=== PATIENT | male | born 1970 | race Caucasian/White ===

== ENCOUNTER 2019-11-21 15:06 | Emergency (ER) | payer SELFPAY ==
[~2019-11-21] VITALS: Ht 180.3 cm; Wt 74.8 kg
[2019-11-21 15:15] VITALS: BP 132/87
--- NOTE | 2019-11-21 15:15 | NUR ---
ED Nurse Note: Pt walked in to ED from home c/o insect bite on right thigh x 2 days. Reports hot to touch and redness. VSS.
[2019-11-21] MEDS ORDERED: VIBRAMYCIN100 MG ORAL (15:28)
[2019-11-21] MEDS ORDERED: AUGMENTIN 875-1 EAC1 ORAL (15:28)
[2019-11-21] MEDS ORDERED: Augmentin 875mg Tab ORAL ONE (15:30)
[2019-11-21] MEDS ORDERED: Doxycycline Monohydrate 100mg ORAL ONE (15:30)
--- NOTE | 2019-11-21 15:32 | Emergency Room Report ---
History of Present Illness General Chief Complaint: Animal Bite Source: Patient Present Illness HPI Patient is a 49-year-old male who presents after increased right lower extremity redness and discomfort. Patient presented with increased pain. He reports having initial redness to the area which had gradually worsened. Denies any prior history of any compromise. Had not been having any fever or dizziness. Reports having onset during gardening. He thinks he may have been bitten by an insect. Denies any initial pain.Denies prior history of HIV or other immunocompromise. Allergies: Coded Allergies: No Known Allergies (Unverified , 11/21/19) COVID-19 Screening Contact w/high risk pt: No Recent Travel to affected area: No Experienced COVID-19 symptoms?: No COVID-19 Testing performed [employer] FORMER: No Patient History Past Medical History: see triage record Reviewed Nursing Documentation: PMH: Agreed; PSxH: Agreed Nursing Documentation-PMH Past Medical History: No History, Except For Hx Hypertension: No - CELLULITIS Review of Systems All Other Systems: negative except mentioned in HPI Physical Exam Vital Signs Date Time Temp Pulse Resp B/P (MAP) Pulse Ox O2 Delivery O2 Flow Rate FiO2 11/21/19 15:10 98.4 120 16 132/87 (102) 99 Room Air General Appearance: well appearing, no apparent distress, GCS 15 Head: normocephalic, atraumatic ENT: hearing grossly normal, normal voice Neck: full range of motion, supple Respiratory: no respiratory distress, speaking full sentences Cardiovascular #1: normal inspection, no edema Gastrointestinal: normal inspection, non tender, soft Musculoskeletal: no calf tenderness Neurologic: alert, motor strength/tone normal, backup administrative coordinator III-XII nml as tested, oriented x3, normal gait Psychiatric: normal inspection, mood/affect normal Skin: other - Right lower extremity patchy erythema with central papule consistent with a insect bite. No purulent lesions or streaking Medical Decision Making Diagnostic Impression: Primary Impression: Infected insect bite ER Course Patient presented for right lower extremity discomfort. Differential diagnosis include was not limited to allergic reaction, insect bite, cellulitis, abscess among others. Patient has a benign exam and does not appear to require any imaging or laboratory testing at this time. Patient appears to have a insect bite which appears to be somewhat infected. Does not appear to be any evidence of central necrosis at this time. At this does appear to be possibly spider bite. Patient does not have any abdominal discomfort and does not appear to be toxic at this time. He was given prescription for oral antibiotics and advised to have the wound rechecked in 1 to 2 days. He was advised to return if worse. He was advised to have a tetanus shot which he states he will obtain out as an outpatient. The patient is advised to follow up with his doctor in 2 days. Patient is advised to return if any worsening condition or if any changes in status that are concerning. This report is dictated with [employer] trimming machine set up operator software which may occasionally lead to discrepancies related to use of this software. Last Vital Signs Date Time Temp Pulse Resp B/P (MAP) Pulse Ox O2 Delivery O2 Flow Rate FiO2 11/21/19 15:15 98.4 120 16 132/87 99 Room Air Status: improved Disposition: HOME, SELF-CARE Condition: Stable Scripts Doxycycline Hyclate* (VIBRAMYCIN*) 100 Mg Capsule 100 MG ORAL EVERY 12 HOURS, #14 CAP 0 Refills Prov: Kulwant August MD 11/21/19 Amoxicillin/Potassium Clav 875-125* (AUGMENTIN 875-125 TABLET*) 1 Each Tablet 1 TAB ORAL TWICE A DAY, #14 TAB Prov: Kulwant August MD 11/21/19 Patient Instructions: Cellulitis, [id number] Additional Instructions: Wound recheck in 2-3 days. Return for increased fever, dizziness, or any other concerns. Kulwant August MD Nov 21, 2019 15:32
[2019-11-21 15:45] VITALS: BP 129/76
--- NOTE | 2019-11-21 15:45 | NUR ---
ED Nurse Note: Pt cleared by ERMD for discharge. DC instructions/prescription was given and explained to pt and verbalized understanding of teachings. All medical deviecs such as ID band removed. Pt is AAO x4, ambulatory and left with all personal belongings.
== END 2019-11-21 15:45 | disposition home or self-care (01) ==
LOC: EMR 15:30
DX: S80.861A Insect bite (nonvenomous), right lower leg, initial encounter (principal); L08.9 Local infection of the skin and subcutaneous tissue, unspecified; W57.XXXA Bitten or stung by nonvenomous insect and other nonvenomous arthropods, initial encounter; Y92.9 Unspecified place or not applicable
CPT/HCPCS: 99282